=== PATIENT | female | born 1985 | race Caucasian/White ===

== ENCOUNTER 2021-07-22 18:38 | Emergency (ER) | payer OTHER ==
[2021-07-22 18:53] VITALS: TEMP 98.2; BMI 25.2
[2021-07-22 20:15] LABS: BASO % 0.3 % (0-2.0); EOS % 1.6 % (0-4.5); HEMATOCRIT 35.2 % (32.4-45.2); HEMOGLOBIN 11.9 GM/dL (10.7-15.3); LYMPH % 38.3 % (8-40); MCH 31.4 pg (25.7-33.7); MCHC 33.8 g/dl (32.0-36.0); MEAN CELL VOLUME 92.7 fl (80-96); MEAN PLT VOLUME 7.4 fl (7.5-11.1); MONO % 6.4 % (3.8-10.2); NEUT % 53.4 % (42.8-82.8); PLATELET COUNT 353 10^3/uL (134-434); RDW 14.8 % (11.6-15.6); WHITE BLOOD COUNT 7.7 K/mm3 (4.0-10.0)
[2021-07-22 20:17] LABS: URINE APPEARANCE CLEAR; URINE BILIRUBIN NEGATIVE (NEGATIVE); URINE COLOR YELLOW; URINE GLUCOSE (UA) NEGATIVE (NEGATIVE); URINE KETONE NEGATIVE (NEGATIVE); URINE LEUK ESTERASE NEGATIVE (NEGATIVE); URINE NITRITE NEGATIVE (NEGATIVE); URINE PROTEIN NEGATIVE (NEGATIVE); URINE UROBILINOGEN 0.2 mg/dL (0.2-1.0)
[2021-07-22 20:20] LABS: HCG,QUALITATIVE URINE Negative
[2021-07-22 20:35] LABS: CALCIUM 9.4 mg/dL (8.5-10.1)
[2021-07-22 20:36] LABS: ALBUMIN 4.1 g/dl (3.4-5.0); MAGNESIUM 2.4 mg/dL (1.8-2.4)
[2021-07-22 20:39] LABS: CREATININE 0.7 mg/dL (0.55-1.3); PHOSPHOROUS 3.3 mg/dL (2.5-4.9)
[2021-07-22 20:40] LABS: TOT PROT 7.4 g/dl (6.4-8.2)
[2021-07-22 20:41] LABS: BILIRUBIN,TOTAL 0.2 mg/dL (0.2-1)
[2021-07-22 22:55] VITALS: BP 119/84; PULSE 76
== END 2021-07-22 22:55 | disposition home or self-care (01) ==
LOC: JER 18:38
DX: R07.9 Chest pain, unspecified (principal)
CPT/HCPCS: 36415; 71046-TC-FY; 80053; 81003; 83735; 83880; 84100; 84439; 84443; 84484; 84703; 85025; 87086; 93005; 93010; 99285-25